=== PATIENT | male | born 1945 | race Caucasian/White ===

== ENCOUNTER 2017-08-30 20:24 | Emergency (ER) | payer OTHER ==
[2017-08-30 20:37] VITALS: TEMP 96.8
[2017-08-30] MEDS ORDERED: HYDROMORPHONE 1 MG/ML SYRINGE IV ONE (21:19)
[2017-08-30] MEDS ORDERED: ONDANSETRON HCL 4 MG/2 ML SOL IV ONE (21:19)
[2017-08-30] MEDS ORDERED: SODIUM CHLORIDE 0.9% 1000ML 1,000 ML IV ONE (21:19)
[2017-08-30] MEDS ORDERED: HYDROMORPHONE HCL 2 MG/ML SOL ONE (21:26)
[2017-08-30] MEDS ORDERED: ONDANSETRON HCL 4 MG/2 ML SOL ONE (21:32)
[2017-08-30 21:51] LABS: BASOPHILS % (AUTO) 2 % (0-3); EOSINOPHILS % (AUTO) 0 % (0-9); HEMATOCRIT 42 % (39-53); HEMOGLOBIN 14.3 gm/dl (13.5-17.7); LACTIC ACID 0.9 mMol/L (0.0-2.0); LYMPHOCYTES % (AUTO) 6.34 % (10-50); MEAN CORPUSCULAR HEMOGLOBIN 35.5 pg (27.0-32.0); MEAN CORPUSCULAR HGB CONC 34.4 gm/dl (32.0-36.0); MONOCYTES % (AUTO) 6.4 % (0-12); NEUTROPHILS % (AUTO) 85.1 % (37-80)
[2017-08-30 21:56] LABS: MEAN CORPUSCULAR VOLUME 103 fL (80-100)
[2017-08-30 22:04] LABS: ANISOCYTOSIS SLIGHT AMT; POIKILOCYTOSIS SLIGHT AMT
[2017-08-30 22:05] LABS: ALBUMIN 3.2 gm/dl (3.4-5.0); BILIRUBIN,TOTAL 1.7 mg/dl (0.2-1.0); CALCIUM 8.9 mg/dl (8.5-10.1); CARBON DIOXIDE 25.7 mEq/L (21-32); CREATININE 1.14 mg/dl (0.80-1.30); POTASSIUM 4.2 mMol/L (3.5-5.1)
[2017-08-30 22:13] VITALS: BP 124/53; PULSE 69; RESP 26; O2SAT 92
[2017-08-30 23:21] LABS: APPEARANCE,URINE Clear; BILIRUBIN,URINE 1+ (NEGATIVE); COLOR,URINE Dark yellow; GLUCOSE, URINE (UA) NEGATIVE (NEGATIVE); KETONES,URINE NEGATIVE (NEGATIVE); LEUKOCYTE ESTERASE ,URINE NEGATIVE (NEGATIVE); NITRATE,URINE NEGATIVE (NEGATIVE); OCCULT BLOOD,URINE NEGATIVE (NEG-TRACE); UROBILINOGEN,URINE >=8.0 (0.2-1.0 EU)
[2017-08-30 23:55] LABS: BACTERIA NEGATIVE (< 1+); CRYSTALS NEGATIVE (0-3 AVE/HPF); EPITHELIAL CELLS NEGATIVE (SQUAMOUS); ICTOTEST,URINE POSITIVE (NEGATIVE); WBC,URINE 0-1 (0-5AV/HPF)
== END 2017-08-31 00:07 | disposition home or self-care (01) | DRG 392 ==
LOC: ED 20:24
DX: R10.9 Unspecified abdominal pain (principal); K80.20 Calculus of gallbladder without cholecystitis without obstruction; Z72.0 Tobacco use
CPT/HCPCS: 36415; 74176; 80053; 81001; 82150; 85025; 93005; 96365; 96374; 96375; 99284; 99285; J1170; J2405